=== PATIENT | female | born 1995 | race American Indian/Alaskan Native ===

== ENCOUNTER 2019-12-10 10:05 | Emergency (ER) | payer SELFPAY ==
[2019-12-10 10:31] VITALS: BP 132/93
--- NOTE | 2019-12-10 11:35 | Event Note ---
ED Screening Note Date of service: 12/10/19 Time: 11:33 ED Screening Note: 23-year-old female presents the ED complaining of lower pelvic pain x3 days with vaginal discharge LMP:11/15/2019 denies ua sx sexually active This initial assessment/diagnostic orders/clinical plan/treatment(s) is/are slaughter bject to change based on patients health status, clinical progression and re- assessment by fellow clinical providers in the ED. Further treatment and workup at subsequent clinical providers discretion. Patient/guardian urged not to elope from the ED as their condition may be serious if not clinically assessed and managed. Initial orders include: ua, upt
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
[2019-12-10 16:01] LABS: Bacteria,Urine 1+ /HPF (Negative); Bilirubin,Urine NEG (Negative); Blood,Urine NEG (Negative); Color,Urine Amber (Yellow); Mucus,Urine 3+ /HPF
[2019-12-10 16:04] LABS: HCG Qualitative,Urine Negative (Negative)
== END 2019-12-10 16:39 | disposition home or self-care (01) ==
LOC: ED 10:05
DX: S16.1XXA Strain of muscle, fascia and tendon at neck level, initial encounter (principal); M54.5 Low back pain; M25.561 Pain in right knee; V49.69XA Unspecified car occupant injured in collision with other motor vehicles in traffic accident, initial encounter; Y93.89 Activity, other specified; Y92.488 Other paved roadways as the place of occurrence of the external cause; Y99.8 Other external cause status
CPT/HCPCS: 81001; 81025; 99283

== ENCOUNTER 2021-04-04 02:26 | Emergency (ER) | payer OTHER ==
[2021-04-04 02:32] VITALS: BP 103/67
--- NOTE | 2021-04-04 04:12 | Emergency Department Report ---
HPI - General Chief Complaint: Vaginal Bleeding Time Seen by Provider: 04/04/21 03:38 - HPI HPI: 25-year-old -[place] female presents to the emergency department with a complaint of vaginal bleeding starting at about 9 PM last night. The patient is about 11 weeks . With this she is G2, P0 with 1 previous miscarriage. She denies any pelvic pain, fever, dysuria, vaginal discharge. She has not taken anything for symptoms prior to presentation. She follows with Pinky García for [facility]. She says that it is a moderate to heavy amount of bleeding with some clots. ED Past Medical Hx - Past Medical History Previous Medical History?: No - Surgical History Past Surgical History?: No - Social History Smoking Status: Current Every Day Smoker Substance Use Type: Alcohol ED Review of Systems ROS: Stated complaint: VAGINAL BLEEDING Other details as noted in HPI Comment: All other systems reviewed and negative Constitutional: denies: chills, fever Eyes: denies: eye pain, vision change ENT: denies: ear pain, throat pain Respiratory: denies: cough, shortness of breath Cardiovascular: denies: chest pain, palpitations Gastrointestinal: denies: abdominal pain, vomiting Genitourinary: other (Vaginal bleeding). denies: dysuria, discharge Musculoskeletal: denies: back pain, arthralgia Skin: denies: rash, lesions Neurological: denies: headache, weakness Physical Exam - Physical Exam Vital Signs: Vital Signs 04/04/21 02:28 Temperature 98.6 F Pulse Rate 87 Respiratory 18 Rate Blood Pressure 103/67 [Right] O2 Sat by Pulse 99 Oximetry Physical Exam: GENERAL: The patient is well-developed well-nourished. HENT: Normocephalic. Atraumatic. Patient has moist mucous membranes. EYES: Extraocular motions are intact. NECK: Supple. Trachea is midline. CHEST/LUNGS: Clear to auscultation. There is no respiratory distress noted. HEART/CARDIOVASCULAR: Regular. There is no tachycardia. There is no murmur. ABDOMEN: Abdomen is soft, nontender. Patient has normal bowel sounds. There is no abdominal distention. SKIN: Skin is warm and dry. NEURO: The patient is awake, alert, and oriented. The patient is cooperative. Normal speech. MUSCULOSKELETAL: There is no tenderness or deformity. ED Course Vital Signs 04/04/21 02:28 Temperature 98.6 F Pulse Rate 87 Respiratory 18 Rate Blood Pressure 103/67 [Right] O2 Sat by Pulse 99 Oximetry ED Medical Decision Making - Lab Data Result diagrams: 04/04/21 03:46 Lab Results 04/04/21 04/04/21 04/04/21 Range/Units 03:46 03:46 03:46 WBC 8.6 (4.5-11.0) K/mm3 RBC 3.66 (3.65-5.03) M/mm3 Hgb 11.4 (10.1-14.3) gm/dl Hct 35.0 (30.3-42.9) % MCV 96 (79-97) fl MCH 31 (28-32) pg MCHC 33 (30-34) % RDW 14.1 (13.2-15.2) % Plt Count 213 (140-440) K/mm3 Lymph % (Auto) 25.3 (13.4-35.0) % [place] % (Auto) 7.6 H (0.0-7.3) % Eos % (Auto) 2.0 (0.0-4.3) % Baso % (Auto) 0.3 (0.0-1.8) % Lymph # (Auto) 2.2 (1.2-5.4) K/mm3 [place] # (Auto) 0.7 (0.0-0.8) K/mm3 Eos # (Auto) 0.2 (0.0-0.4) K/mm3 Baso # (Auto) 0.0 (0.0-0.1) K/mm3 Seg Neutrophils % 64.8 (40.0-70.0) % Seg Neutrophils # 5.6 (1.8-7.7) K/mm3 HCG, Quant 32402 H (0-4) mIU/mL Blood Type O POSITIVE Ord Rhogam Gestat Weeks <11 WEEKS - Radiology Data Radiology results: report reviewed ULTRASOUND OBSTETRIC REASON FOR EXAM: vaginal bleeding, TECHNIQUE: Transabdominal and transvaginal ultrasound was performed to evaluate a first trimester . COMPARISON: None available. FINDINGS: FINDINGS: The pole, yolk sac, and gestational sac are normal in appearance. [place]- rump length: 40.9 mm. This corresponds with a gestational age of 11 weeks 0 days. heart rate: 166 bpm Perigestational hemorrhage: No evidence of perig estational hemorrhage on the provided images. MATERNAL FINDINGS: The uterus demonstrates an otherwise unremarkable sonographic appearance. Neither ovary is identified. No significant cystic or solid mass in either adnexa. Cul-de-sac: There is no free fluid. IMPRESSION: Viable intrauterine . No significant abnormality. Gestational age is 11 weeks 0 days by ultrasound. Recommend clinical screening and ultrasound follow-up in the second trimester to screen for anomalies. - Medical Decision Making This patient presents with vaginal bleeding while . CBC is unremarkable. Beta-hCG is about 39,000. Patient has the blood type of O+ and therefore does not need ED RhoGam shot. She is awaiting the ultrasound. My colleague, Dr Powell, will follow up on the ultrasound results and assist with further disposition. Critical Care Time: No Critical care attestation.: If time is entered above; I have spent that time in minutes in the direct care of this critically ill patient, excluding procedure time. ED Disposition Clinical Impression: Threatened miscarriage Qualifiers: Weeks of gestation: 11 weeks Qualified Code(s): Z3A.11 - 11 weeks gestation of Disposition: 01 HOME / SELF CARE / HOMELESS Is pt being admited?: No Condition: Stable Instructions: Threatened Miscarriage, First Trimester of Additional Instructions: Please follow-up with your [facility] in the next 1 to 2 days without fail. Please avoid any sexual intercourse or place anything inside of the vagina. Do not lift anything greater than 15 pounds until cleared to do so by your [facility]. Return to the emergency department with any worsening of your symptoms, new or concerning symptoms not addressed during this current emergency department visit, or with any acute distress. Referrals: PINKY GARCÍA MD [Primary Care Provider] - 2-3 Days
[2021-04-04 05:00] LABS: Basophils % (Auto) 0.3 % (0.0-1.8); Eosinophils # (Auto) 0.2 K/mm3 (0.0-0.4); Hemoglobin 11.4 gm/dl (10.1-14.3); Lymphocytes # (Auto) 2.2 K/mm3 (1.2-5.4); Lymphocytes % (Auto) 25.3 % (13.4-35.0); Mean Corpuscular HGB Conc 33 % (30-34); Mean Corpuscular Volume 96 fl (79-97); Monocytes # (Auto) 0.7 K/mm3 (0.0-0.8); Monocytes % (Auto) 7.6 % (0.0-7.3); Platelet Count 213 K/mm3 (140-440); Red Blood Count 3.66 M/mm3 (3.65-5.03); Red Cell Distribution Width 14.1 % (13.2-15.2)
--- NOTE | 2021-04-04 07:22 | Ultrasound Report ---
ULTRASOUND OBSTETRIC REASON FOR EXAM: vaginal bleeding, TECHNIQUE: Transabdominal and transvaginal ultrasound was performed to evaluate a first trimester pre gnancy. COMPARISON: None available. FINDINGS: FINDINGS: The pole, yolk sac, and gestational sac are normal in appearance. [place]-rump length: 40.9 mm. This corresponds with a gestational age of 11 weeks 0 days. heart rate: 166 bpm Perigestational hemorrhage: No evidence of perigestational hemorrhage on the provided images. MATERNAL FINDINGS: The uterus demonstrates an otherwise unremarkable sonographic appearance. Neither ovary is identified. No significant cystic or solid mass in either adnexa. Cul-de-sac: There is no free fluid. IMPRESSION: Viable intrauterine . No significant abnormality. Gestational age is 11 weeks 0 days by ultr asound. Recommend clinical screening and ultrasound follow-up in the second trimester to screen for a nomalies. Signer Name: Jake Ceballos MD Signed: 04/04/2021 7:18 AM Workstation Name: [id number]
== END 2021-04-04 07:52 | disposition home or self-care (01) ==
LOC: ED 02:26
DX: O20.0 Threatened abortion (principal)
CPT/HCPCS: 36415; 76801; 84702; 85025; 86900; 86901; 99284